=== PATIENT | male | born 1955 | race Caucasian/White ===

== ENCOUNTER 2018-05-29 11:02 | Inpatient (IN) | payer BC ==
[~2018-05-29] VITALS: Ht 180.3 cm; Wt 79.5 kg
[2018-05-29] MEDS ORDERED: ASPIRIN 325 MG TAB PO STA (11:48)
[2018-05-29 12:22] LABS: BASOPHILS % 0.4 % (0.0-1.0); EOSINOPHILS # (AUTO) 0.2 (0.0-0.4); EOSINOPHILS % 4.1 % (0.0-6.0); HEMATOCRIT 49.9 % (38.2-49.6); HEMOGLOBIN 17.5 g/dL (14.0-18.0); LYMPHOCYTES # (AUTO) 2.1 (1.0-3.2); LYMPHOCYTES % 41.4 % (18.0-39.1); MEAN CORPUSCULAR HGB CONC 35.1 g/dL (31-35); MONOCYTES # (AUTO) 0.5 (0.2-0.8); MONOCYTES % 10.7 % (4.4-11.3); NEUTROPHILS # (AUTO) 2.2 (2.1-6.9); PLATELET COUNT 203 x10e3/uL (140-360); RED BLOOD COUNT 5.31 x10e6/uL (4.3-5.7); RED CELL DISTRIBUTION WIDTH 14.1 % (11.7-14.4)
[2018-05-29 12:32] LABS: INR 1.07; PROTHROMBIN TIME 13.1 seconds (11.9-14.5)
[2018-05-29 12:44] LABS: ALANINE AMINOTRANSFERASE 140 IU/L (0-55); ALBUMIN 3.9 g/dL (3.5-5.0); ALKALINE PHOSPHATASE 73 IU/L (40-150); BLOOD UREA NITROGEN 15 mg/dL (7-26); BUN/CREATININE RATIO 15 (6-25); CALCIUM 9.8 mg/dL (8.4-10.2); CARBON DIOXIDE 26 mmol/L (22-29); CHLORIDE 104 mmol/L (98-107); CREATININE, SERUM 1.01 mg/dL (0.72-1.25); EST GLOMERULAR FILTRATION RATE > 60 ML/MIN (60-); GLUCOSE 91 mg/dL (74-118); SODIUM 140 mmol/L (136-145)
--- NOTE | 2018-05-29 13:42 | Diagnostic Imaging Report ---
History:Left-sided face numbness Comparison studies:None Technique: Axial images were obtained from the skull base to the vertex. Coronal and sagittal images reconstructed from the axial data. Intravenous contrast: None Findings: Scalp/skull: No abnormalities. Extra-axial spaces: No masses. No fluid collections. Brain sulci: Age-appropriate. Ventricles: Age-appropriate. No hydrocephalus. Parenchyma: Small hypodensity at the left subinsular region, could be related to small chronic nodular abnormal density lacunar infarct.. No masses, hemorrhage, acute or chronic cortical vascular insults. Sellar/suprasellar region: No abnormalities. Craniocervical junction: Patent foramen magnum. No Chiari one malformation. Incidental findings: Atherosclerotic calcifications in the carotid siphons . Impression: 1. No acute abnormalities. 2. Chronic left subinsular lacunar infarct. Signed by: DR Glynn Zheng M.D. on 05/29/2018 1:38 PM
[2018-05-29 16:26] VITALS: BP 151/94
[2018-05-29 16:40] VITALS: BP 151/94
[2018-05-29 20:00] VITALS: BP 134/84
[2018-05-29 23:34] VITALS: BP 134/84
[2018-05-30] VITALS (9 sets, daily range): BP systolic 113–148; BP diastolic 57–95
[2018-05-30] MEDS ORDERED: LOSARTAN-HCTZ1 EAC1 PO (06:28)
[2018-05-30] MEDS ORDERED: ENOXAPARIN SOD INJ 40 MG/0.4 ML SYR SC SCH (18:00)
[2018-05-30] MEDS: FAMOTIDINE 20 MG TAB PO SCH (18:20)
--- NOTE | 2018-05-30 19:44 | Consultation ---
DATE OF CONSULTATION: May 30, 2018 NEUROLOGY CONSULTATION HISTORY OF PRESENT ILLNESS: Mr. Barraza is a 62-year-old right-hand dominant man with past medical history significant for hypertension and a prior stroke without residual deficits admitted to [facility] on May 29, 2018 with a possible stroke. At approximately 1600, on May 28, 2018, the patient experienced the sudden onset of numbness and tingling over the left side of the face and left arm. Mr. Barraza does not report a visual field cut or other disturbance, dysarthria, aphasia, facial droop, weakness, impairment of gait or balance, dizziness or confusion. Mr. Barraza' symptoms persisted into the next day. At that time, he saw his primary care physician, who recommended the patient proceed immediately to the emergency center at [facility] for further evaluation. Upon arrival in the emergency center, the patient was afebrile with a blood pressure 159/105 mmHg and a pulse of 75 beats per minute. His neurological examination was documented as follows: Alert. Oriented times 3. Altered mental status. Alertness is decreased. Abnormal verbal response. Aphasia. Mood/affect normal. Speech normal. Cranial nerves normal (as tested). Mild left-sided facial weakness with sparing of forehead. No cerebellar findings. No motor deficits. The patient has weakness of the right face and left arm (3/5 movement possible against gravity, but not against resistance). No sensory deficit. Sensory deficit present. Altered sensation to light touch on the left face. Altered sensation to pinprick on the left face. Reflexes normal. No depression of gag reflex. A CT of the brain without contrast was performed, but did not show evidence of recent large territorial ischemia, hemorrhage, mass or mass effect, a chronic left subinsular lacunar infarct was observed. Cerebral volumes were appropriate for age. There are findings compatible with mild chronic small vessel ischemic disease. Mr. Barraza was admitted to [facility] as an inpatient for further evaluation and treatment of his symptoms. Mr. Barraza experienced a prior stroke in 2013. He reports experiencing numbness and tingling over the left hemibody, impairment of balance and gait, and dizziness. After approximately 6 months of therapy, the patient's residual deficits resolved. Following the stroke, Mr. Barraza was instructed to take aspirin 325 mg by mouth daily for stroke prophylaxis. The patient reports compliance with this medication. REVIEW OF SYSTEMS: Numbness and tingling over the left side of the face and left arm, headaches. Otherwise, the 12-point review of systems is negative. PAST MEDICAL HISTORY: Hypertension, irritable bowel syndrome, a prior stroke in 2013 without residual deficits. PAST SURGICAL HISTORY: Umbilical hernia repair, left inguinal hernia repair, vasectomy. PAST HOSPITALIZATION: Surgeries/procedures as listed. FAMILY MEDICAL HISTORY: The patient's paternal and maternal grandparents are . Their medical histories are unknown. The patient's father is from coronary artery disease. The patient's father smoked cigarettes and was an alcoholic as well. The patient's mother is from complications of a hip fracture. Mr. Barraza had 2 siblings. His sister is from cancer. His brother is alive, but has coronary artery disease, and lung disease. His brother smokes cigarettes and is an alcoholic as well. Mr. Barraza has 1 biological son, who is alive and healthy. SOCIAL HISTORY: The patient is . 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 The patient does not endorse current or prior tobacco or recreational drug use. He drinks 2 to 3 glasses of wine daily. HOME MEDICATIONS 1. Aspirin 325 mg by mouth daily. 2. Losartan/hydrochlorothiazide 1 tablet by mouth daily. ALLERGIES: NO KNOWN DRUG ALLERGIES. NO KNOWN FOOD ALLERGIES. NO KNOWN ALLERGIES TO LATEX. NO KNOWN ALLERGIES TO IODINE OR OTHER CONTRAST MATERIALS. PHYSICAL EXAMINATION VITAL SIGNS: Height 71 inches. Weight of 175 pounds. BMI 24.4 kg per meter squared. Blood pressure 135/95 mmHg. Pulse 84 beats per minute. Respiratory rate 16 breaths per minute. Oxygen saturation 97% on room air. GENERAL: Patient is awake and alert, does not appear distressed. HEENT: Normocephalic, atraumatic. Pupils are equal, round, and reactive to light. Moist mucous membranes. NECK: Supple. No appreciable thyromegaly. No appreciable carotid bruits. CARDIOVASCULAR: S1, S2, regular rate and rhythm. No murmurs, rubs or gallops. RESPIRATORY: Clear to auscultation bilaterally. No wheezes, rhonchi or rales. EXTREMITIES: The skin is warm and dry. No clubbing, cyanosis or edema. The posterior tibial and dorsalis pedis pulses are 2+ and symmetric. SKIN: No rashes or lesions. NEUROLOGIC Memory/Attention: The patient is awake and alert, oriented to person, place, time, situation. Cranial Nerves: Cranial nerve I--not tested. Cranial nerve II, III, IV, and --pupils are equal and round, react briskly to light (from 4 mm to 2 mm). Extraocular movements intact. No nystagmus. Cranial nerve V--sensation to light touch and pinprick is intact in the bilateral V1 through V3 distributions. Strength of the temporalis and masseter muscles is within normal limits. Cranial nerve 7--the face is symmetric as are all facial movements. Strength is within normal limits. Cranial nerve VIII--hearing is intact to finger rub bilaterally. Cranial nerve IX, X--the soft palate elevates equally and symmetrically. Cranial nerve XI--normal strength of the bilateral sternocleidomastoid and trapezius muscles. Cranial nerve XII--the tongue protrudes midline and moves symmetrically from side to side. Strength: Bulk is normal. Strength is 5/5 in the bilateral deltoids, biceps, triceps, wrist flexors and extensors, finger flexors and extensors, intrinsic hand muscles, hip flexors, knee flexors and extensors, ankle dorsiflexion and plantar flexion, and intrinsic foot muscles. Tone is normal. DTRs: Deep tendon reflexes are 2+ and symmetric at the triceps biceps brachioradialis, patellas, and Achilles. Plantar responses are flexor bilaterally. Sensation: Sensation is intact to light touch and pinprick in both arms and both legs. Cerebellar: Nwvekw-mwok-wrlefe and heel-kelsey movements are intact without dysmetria or other impairment. Gait: Gait deferred. Speech: Spontaneous speech is normal without appreciable dysarthria or aphasia. Repetition is intact. Involuntary Movements: None. Pronator Drift: None. LABORATORY DATA: The patient complete metabolic panel is significant only for an elevated AST of 97 and an elevated ALT of 140. The CBC with differential and platelets reveals a white blood cell count of 5.07 with 43.0% neutrophils, 41.4% lymphocytes, 10.7% monocytes, 4.1% eosinophils, 0.4% basophils. PT 13.1, INR 1.07. DIAGNOSTIC STUDIES: Electrocardiogram May 29, 2018: Normal sinus rhythm at [address] of the brain without contrast May 29, 2018: On my review, there is no evidence of recent large territorial ischemia, hemorrhage, mass or mass effect. There is a chronic left subinsular lacunar infarct. Cerebral volumes are appropriate for age. There are findings compatible with mild chronic small vessel ischemic disease. There is plaque within the right internal carotid artery consistent with mild, 1% to 15% stenosis. The right vertebral artery demonstrates antegrade flow. There is plaque within the left internal carotid artery consistent with mild, 1% to 15% stenosis. The left vertebral artery demonstrates antegrade flow. The right subclavian artery demonstrates normal flow. The left subclavian artery demonstrates normal flow. ASSESSMENT AND PLAN: Mr. Barraza is a 62-year-old right-hand dominant man admitted to [facility] with numbness and tingling over the left side of the face and left arm. During this hospitalization, the patient's symptoms have significantly improved. At present, his neurological examination is nonfocal. The patient's laboratory data and other diagnostic studies have been reviewed and are documented above. It is possible the symptoms described by Mr. Barraza do represent a new stroke. However, due to the occurrence of similar symptoms during the patient's stroke in 2013, it is possible the numbness and tingling over the left side of the face and left arm represent recrudescence of prior deficits, probably due to an elevated blood pressure. RECOMMENDATIONS 1. A lipid panel and hemoglobin A1c will be ordered. 2. A MRI of the brain without contrast will be ordered. 3. An echocardiogram has been ordered and is pending. 4. A MRA of the brain without contrast will be ordered. 5. Continue with aspirin 325 mg by mouth daily for stroke prophylaxis. Should the MRI of the brain without contrast reveal a new ischemic stroke, aspirin will be discontinued and replaced with Plavix 75 mg by mouth daily for stroke prophylaxis. 6. Allow permissive hypertension pending the results of the vascular studies. The patient's current antihypertensive medications will be held. 7. Follow up the results of the lipid panel. 8. Follow up the results of the hemoglobin A1c. 9. Speech and physical therapy consultations will be deferred as there are no deficits on the patient's neurological examination. 10. GI prophylaxis with Pepcid 20 mg by mouth twice daily before meals. 11. DVT prophylaxis with Lovenox 40 mg subcutaneously daily. 12. Defer treatment of the remaining medical comorbidities to the primary and other services. Thank you for this consultation. I will continue to follow this patient while he remains in the hospital. Job#: [id number] CQ MTDDomenic
--- NOTE | 2018-05-30 19:48 | Diagnostic Imaging Report ---
History: Left facial numbness and weakness Comparison studies: Head CT on 05/29/2018 Technique: Sagittal T2; axial DWI, FLAIR, MPGR, T1, Coronal FLAIR. Intravenous contrast: None Findings: Scalp: Normal in signal . No masses . Bone marrow: Normal in signal intensity. Extra-axial: No masses or fluid collections. Brain sulci: Appropriate for age. Ventricles: Normal in size . No hydrocephalus . Parenchyma: A 3 mm chronic lacunar insult is centered in the left anterior subinsular white matter. A few scattered T2 FLAIR hyperintense foci in the supratentorial white matter are nonspecific small vessel ischemic changes. No masses, hemorrhage, acute or chronic cortical ischemic insults. Suprasellar region: No abnormalities. Craniocervical junction: No abnormalities. Patent foramen magnum. No Chiari one malformation. Vessels: Normal flow-voids in the arteries and sinuses. Incidental mucosal thickening in the right frontal sinus. IMPRESSION: 1. No acute abnormalities. Significantly, no acute vascular insult 2. No changes when compared to the head CT on 06/08/2018. Chronic findings: 1. Mild supratentorial white matter small vessel ischemic changes 2. Old vascular insult in the left subinsular region. Signed by: Dr. Trever Santiago M.D. on 05/30/2018 7:45 PM
--- NOTE | 2018-05-30 19:50 | Diagnostic Imaging Report ---
History: Left face weakness Comparison studies: Head CT on 06/08/2018, brain MRI on 05/30/2018 Technique: 3-D [id number] intracranial. Contrast: None Findings: Internal carotid arteries: No flow abnormalities. Vertebral arteries: No flow abnormalities in the visualized intracranial segments. Basilar artery: No flow abnormalities. Posterior cerebral arteries: No flow abnormalities. Anatomical variants: Acom: Not visualized. Pcoms: Barely bilaterally. Vertebral arteries: Left slightly dominant. IMPRESSION: No abnormalities . Signed by: Dr. Trever Santiago M.D. on 05/30/2018 7:47 PM
[2018-05-30] MEDS ORDERED: TEMAZEPAM 15 MG CAP PO PRN (22:15)
[2018-05-31 00:57] VITALS: BP 145/92
[2018-05-31 04:20] VITALS: BP 128/80
[2018-05-31 05:52] LABS: BASOPHILS % 0.7 % (0.0-1.0); EOSINOPHILS # (AUTO) 0.6 (0.0-0.4); EOSINOPHILS % 9.2 % (0.0-6.0); HEMATOCRIT 48.8 % (38.2-49.6); HEMOGLOBIN 17.4 g/dL (14.0-18.0); LYMPHOCYTES # (AUTO) 2.2 (1.0-3.2); LYMPHOCYTES % 36.3 % (18.0-39.1); MEAN CORPUSCULAR HGB CONC 35.7 g/dL (31-35); MEAN CORPUSCULAR VOLUME 92.6 fL (81-99); MONOCYTES # (AUTO) 0.7 (0.2-0.8); MONOCYTES % 11.7 % (4.4-11.3); NEUTROPHILS # (AUTO) 2.5 (2.1-6.9); NEUTROPHILS % 41.8 % (38.7-80.0); PLATELET COUNT 194 x10e3/uL (140-360); RED BLOOD COUNT 5.27 x10e6/uL (4.3-5.7)
[2018-05-31 06:08] LABS: ANION GAP 13.8 mmol/L (8-16); BLOOD UREA NITROGEN 14 mg/dL (7-26); BUN/CREATININE RATIO 15 (6-25); CALCIUM 9.1 mg/dL (8.4-10.2); CARBON DIOXIDE 22 mmol/L (22-29); CHLORIDE 107 mmol/L (98-107); CREATININE, SERUM 0.95 mg/dL (0.72-1.25); EST GLOMERULAR FILTRATION RATE > 60 ML/MIN (60-); GLUCOSE 101 mg/dL (74-118); POTASSIUM 3.8 mmol/L (3.5-5.1); SODIUM 139 mmol/L (136-145)
[2018-05-31 07:01] LABS: CHOL/HDL RATIO 3.5 (3.9-4.7)
[2018-05-31 07:10] VITALS: BP 120/65
[2018-05-31] MEDS: FAMOTIDINE 20 MG TAB PO SCH (08:10)
[2018-05-31] MEDS ORDERED: HYDROCHLOROTHIAZIDE 25 MG TAB PO SCH (09:00)
[2018-05-31] MEDS ORDERED: LOSARTAN POTASSIUM 100 MG TAB PO SCH (09:00)
[2018-05-31 11:42] VITALS: BP 136/83
[2018-05-31] MEDS ORDERED: SIMVASTATIN40 MG PO (13:40)
== END 2018-05-31 14:01 | disposition home or self-care (01) | DRG 69 ==
LOC: ER 11:02 → ERHOLD 12:49 → MED/SURG3 15:56
DX: G45.9 Transient cerebral ischemic attack, unspecified (principal); I69.354 Hemiplegia and hemiparesis following cerebral infarction affecting left non-dominant side; I50.1 Left ventricular failure, unspecified; I11.0 Hypertensive heart disease with heart failure; E11.9 Type 2 diabetes mellitus without complications
CPT/HCPCS: 36415; 70450; 70544; 70551; 80048; 80053; 80061; 83036; 85025; 85610; 93005; 93306; 93880; 97139; 99284; J1650

== ENCOUNTER 2022-01-25 08:58 | Inpatient (IN) | payer MEDICARE, BC ==
[~2022-01-25] VITALS: Ht 332.7 cm; Wt 75.4 kg
[~2022-01-25 08:58] MED LIST: LOSARTAN-HCTZ1 EAC1 PO; SIMVASTATIN40 MG PO
[2022-01-25] MEDS ORDERED: SODIUM CHLORIDE 0.9% 1000ML 1,000 ML IV STA ×2 (09:26→10:12)
[2022-01-25] MEDS ORDERED: ONDANSETRON HCL INJ 2MG/ML 2ML 2 MG/ML VIAL IV STA (09:26)
[2022-01-25 09:45] LABS: BASOPHILS % 0.4 % (0.0-1.0); EOSINOPHILS # (AUTO) 0.2 (0.0-0.4); EOSINOPHILS % 1.9 % (0.0-6.0); HEMATOCRIT 44.9 % (38.2-49.6); LYMPHOCYTES # (AUTO) 1.6 (1.0-3.2); LYMPHOCYTES % 20.4 % (18.0-39.1); MEAN CORPUSCULAR HEMOGLOBIN 32.3 pg (28-32); MEAN CORPUSCULAR HGB CONC 35.6 g/dL (31-35); MEAN CORPUSCULAR VOLUME 90.5 fL (81-99); MONOCYTES # (AUTO) 0.5 (0.2-0.8); MONOCYTES % 6.8 % (4.4-11.3); NEUTROPHILS # (AUTO) 5.5 (2.1-6.9); NEUTROPHILS % 70.4 % (38.7-80.0); PLATELET COUNT 242 x10e3/uL (140-360); RED BLOOD COUNT 4.96 x10e6/uL (4.3-5.7)
[2022-01-25 09:59] LABS: INR 0.87; PARTIAL THROMBOPLASTIN TIME 26.1 seconds (23.8-35.5); PROTHROMBIN TIME 12.6 seconds (11.9-14.5)
[2022-01-25 10:05] LABS: ALBUMIN 4.1 g/dL (3.5-5.0); CREATININE, SERUM 0.98 mg/dL (0.72-1.25); MAGNESIUM 1.6 MG/DL (1.3-2.1)
[2022-01-25 10:17] LABS: B-TYPE NATRIURETIC PEPTIDE2 < 10.0 pg/mL (0-100)
[2022-01-25 10:24] LABS: CREATINE KINASE MB 0.4 ng/mL (0-5.0); THYROID STIMULATING HORMONE 2.033 uIU/mL (0.350-4.940)
[2022-01-25 10:38] LABS: CLARITY,URINE CLEAR (CLEAR); COLOR,URINE YELLOW (YELLOW); KETONES,URINE TRACE (NEGATIVE); LEUKOCYTE ESTERASE ,URINE NEGATIVE (NEGATIVE); NITRITE,URINE NEGATIVE (NEGATIVE); PROTEIN,URINE DIPSTICK NEGATIVE (NEGATIVE); URINE UROBILINOGEN 0.2 mg/dL (0.2 - 1)
[2022-01-25] MEDS ORDERED: SODIUM CHLORIDE 0.9% 50ML 50 ML ONE (10:41)
[2022-01-25] MEDS ORDERED: IOPAMIDOL 370 MG/ML 200 ML INFUS..BTL INJ ONE (10:41)
[2022-01-25 10:42] LABS: MUCUS,URINE RARE (RARE); RBC,URINE 0-5 /HPF (0-5); WBC,URINE (MAN) 0-5 /HPF (0-5)
[2022-01-25] MEDS ORDERED: CEFTRIAXONE 1 GM in SODIUM CHLORIDE 0.9% 50ML 50 ML IV ONE (11:15)
[2022-01-25] MEDS ORDERED: Morphine 2mg Syringe 2 MG/ML SYR IV PRN (12:45)
[2022-01-25] MEDS ORDERED: MECLIZINE HCL 12.5 MG TAB PO ONE (12:45)
[2022-01-25] MEDS ORDERED: ONDANSETRON HCL INJ 2MG/ML 2ML 2 MG/ML VIAL IV PRN (12:45)
[2022-01-25] MEDS ORDERED: MECLIZINE HCL 12.5 MG TAB PO PRN (12:45)
[2022-01-25] MEDS: SODIUM CHLORIDE 0.9% 1000ML 1,000 ML IV SCH ×2 (12:54→21:55)
[2022-01-25] MEDS ORDERED: FLOMAX0.4 MG PO (13:01)
[2022-01-25] MEDS ORDERED: ACETAMINOPHEN 325 MG TAB PO PRN (14:45)
[2022-01-25] MEDS ORDERED: CLONIDINE HCL 0.1 MG TAB PO PRN (14:45)
[2022-01-25 15:51] VITALS: BP 129/76
[2022-01-25 16:00] VITALS: BP 129/76
[2022-01-25 18:56] LABS: CREATINE KINASE MB 0.5 ng/mL (0-5.0)
[2022-01-25 19:40] VITALS: BP 112/71
[2022-01-25 21:00] VITALS: BP 112/71
[2022-01-26] VITALS: BP 104/69
[2022-01-26 03:21] LABS: CREATINE KINASE MB 0.5 ng/mL (0-5.0)
[2022-01-26 04:10] VITALS: BP 121/77
[2022-01-26] MEDS: SODIUM CHLORIDE 0.9% 1000ML 1,000 ML IV SCH ×2 (05:04→12:45)
[2022-01-26 05:34] LABS: BASOPHILS % 0.2 % (0.0-1.0); EOSINOPHILS # (AUTO) 0.2 (0.0-0.4); HEMATOCRIT 36.1 % (38.2-49.6); HEMOGLOBIN 12.5 g/dL (14.0-18.0); LYMPHOCYTES # (AUTO) 1.4 (1.0-3.2); LYMPHOCYTES % 30.9 % (18.0-39.1); MEAN CORPUSCULAR HEMOGLOBIN 32.2 pg (28-32); MEAN CORPUSCULAR HGB CONC 34.6 g/dL (31-35); MONOCYTES # (AUTO) 0.5 (0.2-0.8); MONOCYTES % 10.4 % (4.4-11.3); NEUTROPHILS # (AUTO) 2.5 (2.1-6.9); NEUTROPHILS % 53.3 % (38.7-80.0); PLATELET COUNT 181 x10e3/uL (140-360); RED BLOOD COUNT 3.88 x10e6/uL (4.3-5.7); RED CELL DISTRIBUTION WIDTH 13.2 % (11.7-14.4)
[2022-01-26 05:55] LABS: ALBUMIN 3.1 g/dL (3.5-5.0); ALBUMIN/GLOBULIN RATIO 1.1 (0.8-2.0); ANION GAP 8.9 mmol/L (8-16); CALCIUM 8.9 mg/dL (8.4-10.2); CREATININE, SERUM 0.91 mg/dL (0.72-1.25); POTASSIUM 3.9 mmol/L (3.5-5.1)
[2022-01-26] MEDS ORDERED: PANTOPRAZOLE SOD 40 MG TABEC PO SCH (07:30)
[2022-01-26 08:03] VITALS: BP 119/74
[2022-01-26 08:04] VITALS: BP 128/85
[2022-01-26 08:05] VITALS: BP 131/86
[2022-01-26] MEDS ORDERED: LOSARTAN POTASSIUM 100 MG TAB PO SCH (09:00)
[2022-01-26] MEDS ORDERED: TAMSULOSIN HCL 0.4 MG CAP PO SCH (09:00)
[2022-01-26 10:45] LABS: CREATINE KINASE MB 0.5 ng/mL (0-5.0)
[2022-01-26] MEDS: MAGNESIUM SULFATE 2GM/50ML 50 ML IV SCH ×2 (11:43→13:46)
[2022-01-26 11:47] VITALS: BP 136/69
[2022-01-26] MEDS ORDERED: ONDANSETRON HCL 4 MG ORAL DISINTEGRATING TAB PO PRN (12:15)
[2022-01-26 12:50] LABS: CHOL/HDL RATIO 3.6 (3.9-4.7)
[2022-01-26] MEDS ORDERED: MECLIZINE HCL12.5 MG PO (15:20)
[2022-01-26] MEDS ORDERED: COZAAR100 MG PO (15:20)
== END 2022-01-26 16:10 | disposition home or self-care (01) | DRG 149 ==
LOC: ER 09:05 → ERHOLD 12:44 → MED/SURG3 14:37
PROVIDERS: ADMIT Internal Medicine; ATTEND Internal Medicine
DX: R42 Dizziness and giddiness (principal); E86.0 Dehydration; I10 Essential (primary) hypertension; Z85.46 Personal history of malignant neoplasm of prostate; E78.00 Pure hypercholesterolemia, unspecified; Z20.822 Contact with and (suspected) exposure to COVID-19; Z79.899 Other long term (current) drug therapy; K57.30 Diverticulosis of large intestine without perforation or abscess without bleeding; I49.3 Ventricular premature depolarization; I69.398 Other sequelae of cerebral infarction; R53.1 Weakness
CPT/HCPCS: 36415; 70450; 70544; 70547; 70551; 71045; 74177; 80053; 80061; 81001; 82550; 82553; 83605; 83690; 83735; 83880; 84443; 84484; 85025; 85610; 85730; 87040; 87086; 93005; 93306; 93880; 94799; 99284; J0696; J2405; J3475; J7030; Q9967; U0002